=== PATIENT | male | born 1975 | race Caucasian/White ===

== ENCOUNTER 2021-01-27 22:18 | Emergency (ER) | payer OTHER ==
[~2021-01-27 22:18] MED LIST: IBUPROFEN600 MG PO
== END 2021-01-27 22:40 | disposition left against medical advice (07) ==
LOC: ER1 22:18
DX: Z53.21 Procedure and treatment not carried out due to patient leaving prior to being seen by health care provider (principal)

== ENCOUNTER 2021-01-27 23:17 | Emergency (ER) | payer OTHER | END 2021-01-28 02:55 | disposition short-term general hospital (02) | LOC: ER1 23:17 | DX: R45.851 Suicidal ideations (principal); F32.9 Major depressive disorder, single episode, unspecified; F17.210 Nicotine dependence, cigarettes, uncomplicated | CPT/HCPCS: 99285 ==